=== PATIENT | male | born 1955 | race Caucasian/White ===

== ENCOUNTER 2016-06-27 18:37 | Emergency (ER) | payer BC ==
--- NOTE | 2016-06-27 18:56 | EDM.PDOC ---
ED HPI GI/ABDOMINAL - General Chief Complaint: Abdominal Pain Stated Complaint: VOMITIING, ABDOMINAL PAIN Time Seen by Provider: 06/27/16 18:45 Source: Reports: Patient, Family History Limitations: Reports: No limitations - History of Present Illness INITIAL COMMENTS - FREE TEXT/NARRATIVE: Jose Guadalupe comes in with a 10 hr hx of colicky RUQ pain associated with nausea and vomiting. There is no radiation of pain, no fever, chills, sweats, diarrhea or constipation. There is no chest pain or SOB. He has tried no meds for sx relief. - Related Data Allergies/ADRs: Allergies Allergy/AdvReac Type Severity Reaction Status Date / Time No Known Allergies Allergy Verified 06/27/16 19:19 Home Meds: Home Meds Lisinopril [Lisinopril] 10 mg PO DAILY 06/27/16 [History] SUMAtriptan Succinate [Sumatriptan Succinate] 100 mg PO ASDIRECTED PRN 06/27/16 [History] Past Medical History Cardiovascular History: Reports: Hypertension Neurological History: Reports: Migraines ED ROS GENERAL - Review of Systems Review Of Systems: See Below Constitutional: Reports: malaise, decreased appetite HEENT: Reports: No symptoms Respiratory: Reports: No Symptoms Cardiovascular: Reports: No symptoms Endocrine: Reports: no symptoms GI/Abdominal: Reports: Abdominal pain, Nausea, Vomiting : Reports: no symptoms Musculoskeletal: Reports: no symptoms Skin: Reports: no symptoms Neurological: Reports: No Symptoms Psychiatric: Reports: No symptoms Hematologic/Lymphatic: Reports: no symptoms Immunologic: Reports: no symptoms ED EXAM, GI/ABD - Physical Exam Exam: See Below Exam Limited By: No limitations General Appearance: alert, WD/WN, mild distress Throat/Mouth: Normal inspection, Normal oropharynx Head: normocephalic Neck: normal inspection, supple Respiratory/Chest: lungs clear, normal breath sounds Cardiovascular: regular rate, rhythm, no murmur GI/Abdominal: normal bowel sounds, no organomegaly, no distention, no mass, tenderness (RUQ) (Male) Exam: No hernia Back Exam: normal inspection Extremities: normal inspection Neurological: alert, oriented, CN II-XII intact, normal cognition, normal gait, no motor/sensory deficits Psychiatric: normal affect, normal mood Skin Exam: Warm, Dry, Intact, Normal color Lymphatic: no adenopathy Course - Vital Signs Text/Narrative:: Following admission to the [facility] ED, lab work and x rays were obtained; the F&U Abdomen was nonspecific, no obst or free air seen; RUQ US normal for age; Abd- Pelvic CT w contrast: fatty liver, appendix normal, no obst, bladder wall thickening with suspected vesical neck obst; incidental minor renal calculi; CBC noting Hgb 16.1 gm, WBC 10,900, plts normal; Na 136, K 4.4, BUN 39, Cr 1.1, non FBS 123; UA noting 2+ ketones; Jose Guadalupe's pain improved with IV fluids and hypo, and he was discharged home for rest and full liquid diet tomorrow. Last Recorded V/S: Last Vital Signs Temp 35.4 C 06/27/16 19:41 Pulse 50 L 06/27/16 19:41 Resp 14 06/27/16 19:41 BP 172/75 H 06/27/16 19:41 Pulse Ox 98 06/27/16 19:41 - Orders/Labs/Meds Orders: Active Orders 24 hr Category Date Time Status Abdomen 2V AP Flat Upright [CR] Stat Exams 06/27/16 18:48 Taken Abdomen Ltd [US] Stat Exams 06/27/16 19:18 Taken Abdomen Pelvis w Cont [CT] Stat Exams 06/27/16 19:44 Taken Iopamidol [Isovue-370 (76%)] Med 06/27/16 20:15 Active 100 ml IV . DIRECTED Sodium Chloride 0.9% [Normal Saline] 1,000 ml Med 06/27/16 19:45 Active IV ASDIRECTED Sodium Chloride 0.9% [Saline Flush] Med 06/27/16 19:44 Active 10 ml FLUSH ASDIRECTED PRN Peripheral IV Insertion Adult [OM.PC] Routine Oth 06/27/16 19:44 Ordered Medication Orders Sodium Chloride (Normal Saline) 1,000 mls @ 999 mls/hr IV ASDIRECTED [facility] Last Admin: 06/27/16 20:14 Dose: 999 mls/hr Iopamidol (Isovue-370 (76%)) 100 ml IV . DIRECTED [facility] Last Admin: 06/27/16 20:35 Dose: 85 ml Sodium Chloride (Saline Flush) 10 ml FLUSH ASDIRECTED PRN PRN Reason: Keep Vein Open Last Admin: 06/27/16 20:05 Dose: 10 ml Labs: Laboratory Tests 06/27/16 06/27/16 06/27/16 Range/Units 18:45 18:45 19:00 WBC 10.9 (4.5-12.0) X10-3/uL RBC 5.69 (4.30-5.75) x10(6)uL Hgb 16.1 H (11.5-15.5) g/dL Hct 48.8 (30.0-51.3) % MCV 85.8 (80-96) fL MCH 28.4 (27.7-33.6) pg MCHC 33.1 (32.2-35.4) g/dL RDW 14.2 (11.5-15.5) % Plt Count 222 (125-369) X10(3)uL MPV 8.9 (7.4-10.4) fL Neut % (Auto) 83.9 H (46-82) % Lymph % (Auto) 11.7 L (13-37) % [place] % (Auto) 2.8 L (4-12) % Eos % (Auto) 0 L (1.0-5.0) % Baso % (Auto) 2 (0-2) % Neut # (Auto) 9.1 H (1.6-8.3) # Lymph # (Auto) 1.3 (0.6-5.0) # [place] # (Auto) 0.3 (0.0-1.3) # Eos # (Auto) 0.0 (0.0-0.8) # Baso # (Auto) 0.2 (0.0-0.2) # Sodium 136 (135-145) mmol/L Potassium 4.4 (3.5-5.3) mmol/L Chloride 103 (100-110) mmol/L Carbon Dioxide 21 L (23-29) mmol/L BUN 39 H (5-20) mg/dL Creatinine 1.1 (0.6-1.3) mg/dL Est Cr Clr Drug Dosing TNP Estimated GFR (MDRD) > 60 (>60) BUN/Creatinine Ratio 35.5 H (9-20) Glucose 123 H (80-116) mg/dL Calcium 9.4 (8.6-10.2) mg/dL Total Bilirubin 1.2 (0.1-1.3) mg/dL AST 20 (5-27) IU/L ALT 16 (14-26) IU/L Alkaline Phosphatase 54 L (56-112) IU/L Total Protein 7.3 (6.0-8.0) g/dL Albumin 4.3 (3.5-5.2) g/dL Globulin 3.0 g/dL Albumin/Globulin Ratio 1.4 Amylase 44 (28-100) U/L Urine Color Yellow (YELLOW) Urine Appearance Clear (CLEAR) Urine pH 6.0 (5.0-6.5) Ur Specific [place] 1.020 (1.010-1.025) Urine Protein Negative (NEGATIVE) mg/dL Urine Glucose (UA) Normal (NEGATIVE) mg/dL Urine Ketones 150 H (NEGATIVE) mg/dL Urine Occult Blood Negative (NEGATIVE) Urine Nitrite Negative (NEGATIVE) Urine Bilirubin Negative (NEGATIVE) Urine Urobilinogen Normal (NEGATIVE) mg/dL Ur Leukocyte Esterase Negative (NEGATIVE) Urine RBC 0-5 (0) Urine WBC 0-5 (0) Ur Squamous Epith Cells Occasional (NS,R,O) Urine Bacteria Rare H (NS) Meds: Medications Generic Name Dose Route Start Last Admin Trade Name Freq PRN Reason Stop Dose Admin Sodium Chloride 1,000 mls @ 999 mls/hr 06/27/16 19:45 06/27/16 20:14 Normal Saline IV 999 mls/hr ASDIRECTED [facility] Administration Iopamidol 100 ml 06/27/16 20:15 06/27/16 20:35 Isovue-370 (76%) IV 85 ml . DIRECTED [facility] Administration Sodium Chloride 10 ml 06/27/16 19:44 06/27/16 20:05 Saline Flush FLUSH 10 ml ASDIRECTED PRN Administration Keep Vein Open Discontinued Medications Generic Name Dose Route Start Last Admin Trade Name Freq PRN Reason Stop Dose Admin Hydromorphone HCl 2 mg 06/27/16 19:45 06/27/16 20:18 Dilaudid IVPUSH 06/27/16 19:46 2 mg ONETIME ONE Administration Departure - Departure Time of Disposition: 21:25 Disposition: Home, Self-Care 01 Condition: fair Clinical Impression: Abdominal pain, acute, right upper quadrant - Problem List & Annotations (1) Abdominal pain, acute, right upper quadrant SNOMED Code(s): 453601534 Code(s): R10.11 - RIGHT UPPER QUADRANT PAIN Status: Acute Current Visit: Yes Annotation/Comment:: Jose Guadalupe is sx improved, and will stay home from work this weekend. He will remain on Full Liq diet tomorrow, monitor temps and report any escalation of sxs. - Problem List Review Problem List Initiated/Reviewed/Updated: Yes - My Orders Last 24 Hours: My Active Orders 06/27/16 18:48 Abdomen 2V AP Flat Upright [CR] Stat 06/27/16 19:18 Abdomen Ltd [US] Stat 06/27/16 19:44 Abdomen Pelvis w Cont [CT] Stat Sodium Chloride 0.9% [Saline Flush] 10 ml FLUSH ASDIRECTED PRN Peripheral IV Insertion Adult [OM.PC] Routine 06/27/16 19:45 Sodium Chloride 0.9% [Normal Saline] 1,000 ml IV ASDIRECTED 06/27/16 20:15 Iopamidol [Isovue-370 (76%)] 100 ml IV . DIRECTED - Assessment/Plan Last 24 Hours: My Active Orders 06/27/16 18:48 Abdomen 2V AP Flat Upright [CR] Stat 06/27/16 19:18 Abdomen Ltd [US] Stat 06/27/16 19:44 Abdomen Pelvis w Cont [CT] Stat Sodium Chloride 0.9% [Saline Flush] 10 ml FLUSH ASDIRECTED PRN Peripheral IV Insertion Adult [OM.PC] Routine 06/27/16 19:45 Sodium Chloride 0.9% [Normal Saline] 1,000 ml IV ASDIRECTED 06/27/16 20:15 Iopamidol [Isovue-370 (76%)] 100 ml IV . DIRECTED Plan: Follow up in ED or PCP if sxs persist. No meds dispensed.
[2016-06-27] MEDS ORDERED: Sodium Chloride 0.9% 10 ML Syringe FLUSH PRN (19:44)
[2016-06-27] MEDS ORDERED: HYDROmorphone 2 MG/ML SDV IVPUSH ONE (19:45)
[2016-06-27] MEDS ORDERED: Sodium Chloride 0.9% 1,000 ML IV SCH (19:45)
[2016-06-27] MEDS ORDERED: Iopamidol 755 Mg/ML 100 ML Bottle IV SCH (20:15)
[2016-06-27 21:26] VITALS: BP 121/72
--- NOTE | 2016-06-30 14:53 | US ---
INDICATION: Right upper quadrant colicky pain, question acute cholecystitis. RIGHT UPPER QUADRANT/GALLBLADDER ULTRASOUND: Multiple ultrasonic images were limited in that the pancreas was not adequately visualized. The gallbladder was normal in size, measuring 6.9 x 2.5 x 2.5 cm, without evidence of wall thickening or calculi and with a negative ultrasonic Plunkett sign. No sludge was seen. No pericholecystic fluid was noted. The common bile duct appeared normal in caliber. The right kidney was not visualized. The aorta and IVC were not evaluated. IMPRESSION: Study somewhat limited by gas with normal gallbladder suggested. MTDD
--- NOTE | 2016-06-30 14:54 | CR ---
INDICATION: 10 hours of right upper quadrant pain, nausea and vomiting. ABDOMEN: Four images of the abdomen in supine and upright projections were obtained and revealed evidence of inguinal surgery bilaterally. There appears to be a calcification overlying the lower pole of the right kidney. Open sutures appear to be present overlying the sacrum and lower right pelvis. The pattern of gas and feces is nonspecific, without evidence of free air or obstruction. No organomegaly, mass lesions, or free fluid collections were suggested. No pathologic calcifications were seen. Calcifications are noted in the area of the prostate. Also there are calcifications compatible with phleboliths in the pelvis. IMPRESSION: 1. Distinct calcification noted overlying the lower pole of the right kidney, compatible with renal calculus - correlate clinically. 2. Prostatic calcifications. 3. Previous inguinal surgeries compatible with herniorrhaphies. 4. Otherwise, nonspecific abdomen. MTDD
== END 2016-06-27 21:26 | disposition home or self-care (01) ==
LOC: FB.ED 18:37
DX: R10.11 Right upper quadrant pain (principal); I10 Essential (primary) hypertension; G43.909 Migraine, unspecified, not intractable, without status migrainosus; Z79.899 Other long term (current) drug therapy
CPT/HCPCS: 36415; 74020; 74177; 76705; 80053; 81001; 82150; 85025; 96361; 96374; 99284; J1170; J7040; J7050; Q9967

== ENCOUNTER 2016-07-04 13:50 | Observation (INO) | payer BC ==
[2016-07-04] MEDS ORDERED: Ondansetron 4 MG/2 ML SDV IV PRN (14:21)
[2016-07-04] MEDS ORDERED: Sodium Chloride 0.9% 10 ML Syringe FLUSH PRN (14:21)
[2016-07-04] MEDS: Lactated Ringers 1,000 ML IV SCH ×2 (14:45→22:58)
[2016-07-04] MEDS ORDERED: Dicyclomine 10 MG Cap PO PRN (17:43)
[2016-07-04] MEDS: Morphine 2 MG/ML Syringe IVPUSH PRN ×2 (18:51→21:49)
[2016-07-04] MEDS ORDERED: PROPRANOLOL 120 MG PO SCH (21:00)
[2016-07-04] MEDS: traZODone 100 MG Tab PO SCH (21:46)
[2016-07-05] MEDS: Morphine 2 MG/ML Syringe IVPUSH PRN ×3 (05:50→16:58)
[2016-07-05] MEDS: Lactated Ringers 1,000 ML IV SCH ×3 (06:59→23:56)
[2016-07-05] MEDS: Lisinopril 10 MG Tab PO SCH (08:07)
--- NOTE | 2016-07-05 10:17 | PCM.SURGPN ---
- General Info Date of Service: 07/05/16 POD#: 0 Functional Status: Reports: urinating - Review of Systems Cardiovascular: Reports: No Symptoms Gastrointestinal: Reports: Abdominal pain, Flatus. Denies: Diarrhea, Vomiting - Patient Data Vitals - most recent: Last Vital Signs Temp 36.3 C 07/05/16 07:45 Pulse 55 L 07/05/16 07:45 Resp 22 H 07/05/16 07:45 BP 128/81 07/05/16 08:07 Pulse Ox 97 07/05/16 07:45 Weight - most recent: 74.843 kg I&O - last 24 hours: Intake & Output 07/04/16 07/05/16 07/05/16 22:59 06:59 14:59 Intake Total 888 935 50 Output Total 150 300 Balance 888 785 -250 Lab Results last 24 hrs: Laboratory Results - last 24 hr 07/04/16 07/04/16 07/04/16 Range/Units 14:55 14:55 18:50 WBC 7.8 (4.5-12.0) X10-3/uL RBC 4.87 (4.30-5.75) x10(6)uL Hgb 14.0 (11.5-15.5) g/dL Hct 42.3 (30.0-51.3) % MCV 87.0 (80-96) fL MCH 28.8 (27.7-33.6) pg MCHC 33.1 (32.2-35.4) g/dL RDW 14.3 (11.5-15.5) % Plt Count 204 (125-369) X10(3)uL MPV 9.2 (7.4-10.4) fL Neut % (Auto) 68.6 (46-82) % Lymph % (Auto) 22.6 (13-37) % [place] % (Auto) 7.3 (4-12) % Eos % (Auto) 1 (1.0-5.0) % Baso % (Auto) 0 (0-2) % Neut # (Auto) 5.3 (1.6-8.3) # Lymph # (Auto) 1.8 (0.6-5.0) # [place] # (Auto) 0.6 (0.0-1.3) # Eos # (Auto) 0.1 (0.0-0.8) # Baso # (Auto) 0.0 (0.0-0.2) # Sodium 136 (135-145) mmol/L Potassium 4.2 (3.5-5.3) mmol/L Chloride 105 (100-110) mmol/L Carbon Dioxide 24 (23-29) mmol/L BUN 33 H (5-20) mg/dL Creatinine 1.0 (0.6-1.3) mg/dL Est Cr Clr Drug Dosing 67.42 mL/min Estimated GFR (MDRD) > 60 (>60) BUN/Creatinine Ratio 33.0 H (9-20) Glucose 91 (80-116) mg/dL Calcium 9.0 (8.6-10.2) mg/dL Total Bilirubin 0.9 (0.1-1.3) mg/dL AST 18 (5-27) IU/L ALT 15 (14-26) IU/L Alkaline Phosphatase 50 L (56-112) IU/L Total Protein 6.7 (6.0-8.0) g/dL Albumin 3.9 (3.5-5.2) g/dL Globulin 2.8 g/dL Albumin/Globulin Ratio 1.4 Urine Color Yellow (YELLOW) Urine Appearance Clear (CLEAR) Urine pH 6.0 (5.0-6.5) Ur Specific [place] 1.020 (1.010-1.025) Urine Protein Negative (NEGATIVE) mg/dL Urine Glucose (UA) Normal (NEGATIVE) mg/dL Urine Ketones 15 H (NEGATIVE) mg/dL Urine Occult Blood Negative (NEGATIVE) Urine Nitrite Negative (NEGATIVE) Urine Bilirubin Negative (NEGATIVE) Urine Urobilinogen Normal (NEGATIVE) mg/dL Ur Leukocyte Esterase Negative (NEGATIVE) Urine RBC Not seen (0) Urine WBC 0-5 (0) Ur Squamous Epith Cells Few H (NS,R,O) Urine Bacteria Few H (NS) Med Orders - Current: Current Medications Lactated Ringer's (Ringers, Lactated) 1,000 mls @ 125 mls/hr IV ASDIRECTED [facility] Last Admin: 07/05/16 06:59 Dose: 125 mls/hr Lisinopril (Prinivil) 10 mg PO DAILY [facility] Last Admin: 07/05/16 08:07 Dose: 10 mg Morphine Sulfate (Morphine) 2 mg IVPUSH Q2H PRN PRN Reason: Pain Last Admin: 07/05/16 08:04 Dose: 2 mg Ondansetron HCl (Zofran) 4 mg IV Q6H PRN PRN Reason: Nausea/Vomiting Last Admin: 07/04/16 18:51 Dose: 4 mg Propranolol HCl (Inderal La) 120 mg PO BEDTIME [facility] Sodium Chloride (Saline Flush) 10 ml FLUSH ASDIRECTED PRN PRN Reason: Keep Vein Open Trazodone HCl (Trazodone) 100 mg PO BEDTIME [facility] Last Admin: 07/04/16 21:46 Dose: 100 mg Discontinued Medications Dicyclomine HCl (Bentyl) 10 mg PO QIDACANDBED PRN PRN Reason: Cramping Propranolol HCl (Inderal La) 120 mg PO BEDTIME [facility] Last Admin: 07/04/16 21:47 Dose: 120 mg - Exam General: alert, oriented, cooperative, no acute distress Lungs: Clear to auscultation, Normal respiratory effort Cardiovascular: Regular Rate, Regular Rhythm Abdomen: tenderness, abnormal bowel sounds (hyperactive ) - Problem List Review Problem List Initiated/Reviewed/Updated: Yes - My Orders Last 24 Hours: Active Orders 24 hr Category Date Time Status Admission Status [Patient Status] [ADT] Routine ADT 07/04/16 14:06 Active Height and Weight [RC] UPON Care 07/04/16 14:21 Active Intake and Output [RC] 06,14,22 Care 07/04/16 14:22 Active Notify Provider Vital Signs [RC] ASDIRECTED Care 07/04/16 14:22 Active Oxygen Therapy [RC] PRN Care 07/04/16 14:21 Active Up ad Cadence [RC] ASDIRECTED Care 07/04/16 14:21 Active VTE/DVT Education [RC] Per Unit Routine Care 07/04/16 14:21 Active Vital Signs [RC] 00,04,08,12,16,20 Care 07/04/16 14:21 Active Clear Liquid Diet [DIET] Diet 07/05/16 Lunch Ordered Nothing per Oral Now Diet [DIET] Diet 07/04/16 Dinner Active Abdomen 1V Flat [CR] Routine Exams 07/04/16 14:21 Taken Chest 2V [CR] Routine Exams 07/04/16 14:21 Taken Dicyclomine [Bentyl] Med 07/05/16 11:30 Ordered 10 mg PO QIDACANDBED Lactated Ringers [Ringers, Lactated] 1,000 ml Med 07/04/16 14:30 Active IV ASDIRECTED Lisinopril [Prinivil] Med 07/05/16 09:00 Active 10 mg PO DAILY Morphine Med 07/04/16 17:45 Active 2 mg IVPUSH Q2H PRN Ondansetron [Zofran] Med 07/04/16 14:21 Active 4 mg IV Q6H PRN Propranolol [Inderal LA] Med 07/05/16 21:00 Active 120 mg PO BEDTIME Sodium Chloride 0.9% [Saline Flush] Med 07/04/16 14:21 Active 10 ml FLUSH ASDIRECTED PRN Sucralfate [Carafate] Med 07/05/16 11:30 Ordered 1 gm PO QIDACANDBED traZODone Med 07/04/16 21:00 Active 100 mg PO BEDTIME Peripheral IV Insertion Adult [OM.PC] Routine Oth 07/04/16 14:21 Ordered Sequential Compression Device [OM.PC] Per Unit Routine Oth 07/04/16 14:22 Ordered Resuscitation Status Routine Resus Stat 07/04/16 14:21 Ordered Medication Orders Lactated Ringer's (Ringers, Lactated) 1,000 mls @ 125 mls/hr IV ASDIRECTED [facility] Last Admin: 07/05/16 06:59 Dose: 125 mls/hr Infusion: 07/05/16 06:58 Dose: 125 mls/hr Admin: 07/04/16 22:58 Dose: 125 mls/hr Infusion: 07/04/16 22:45 Dose: 125 mls/hr Admin: 07/04/16 14:45 Dose: 125 mls/hr Lisinopril (Prinivil) 10 mg PO DAILY [facility] Last Admin: 07/05/16 08:07 Dose: 10 mg Morphine Sulfate (Morphine) 2 mg IVPUSH Q2H PRN PRN Reason: Pain Last Admin: 07/05/16 08:04 Dose: 2 mg Admin: 07/05/16 05:50 Dose: 2 mg Admin: 07/04/16 21:49 Dose: 2 mg Admin: 07/04/16 18:51 Dose: 2 mg Ondansetron HCl (Zofran) 4 mg IV Q6H PRN PRN Reason: Nausea/Vomiting Last Admin: 07/04/16 18:51 Dose: 4 mg Propranolol HCl (Inderal La) 120 mg PO BEDTIME [facility] Sodium Chloride (Saline Flush) 10 ml FLUSH ASDIRECTED PRN PRN Reason: Keep Vein Open Trazodone HCl (Trazodone) 100 mg PO BEDTIME [facility] Last Admin: 07/04/16 21:46 Dose: 100 mg - Assessment Assessment (Free Text/Narrative):: would like to try to eat. - Plan Plan (Free Text/Narrative):: clear liquid diet start bentyl scheduled, add carafate. 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 he does not consistently wear all the PPE he should. I have asked that he get the name of the stuff he was working with.
[2016-07-05] MEDS ORDERED: SUMAtriptan 50 MG Tab PO PRN (11:00)
[2016-07-05] MEDS: Dicyclomine 10 MG Cap PO SCH ×3 (11:21→20:51)
[2016-07-05] MEDS: Sucralfate 1 GM Tab PO SCH ×3 (11:21→20:51)
--- NOTE | 2016-07-05 16:54 | PCM.SN ---
- Free Text/Narrative Note: reports feeling better with the bentyl and the carafate. will advance the diet to full liquids tomorrow.
[2016-07-05] MEDS: traZODone 100 MG Tab PO SCH (20:52)
[2016-07-05] MEDS ORDERED: Propranolol 60 MG Cap.ER PO SCH (21:00)
[2016-07-05] MEDS ORDERED: traZODone 100 MG Tab PO SCH (21:00)
[2016-07-05] MEDS ORDERED: PROPRANOLOL 120 MG PO SCH (21:00)
[2016-07-06] MEDS: Sucralfate 1 GM Tab PO SCH (07:35)
[2016-07-06] MEDS: Dicyclomine 10 MG Cap PO SCH (07:35)
[2016-07-06 07:58] VITALS: BP 136/88
[2016-07-06] MEDS: Lisinopril 10 MG Tab PO SCH (08:21)
--- NOTE | 2016-07-06 08:58 | PCM.SURGPN ---
- General Info Date of Service: 07/06/16 Functional Status: Reports: pain controlled, tolerating diet, ambulating, urinating - Review of Systems Gastrointestinal: Reports: No symptoms (tolerated diet, abd pian is better ) - Patient Data Vitals - most recent: Last Vital Signs Temp 36.7 C 07/06/16 07:15 Pulse 48 L 07/06/16 07:15 Resp 20 07/06/16 07:15 BP 136/88 07/06/16 08:21 Pulse Ox 96 07/06/16 07:15 Weight - most recent: 74.843 kg I&O - last 24 hours: Intake & Output 07/05/16 07/06/16 07/06/16 22:59 06:59 14:59 Intake Total 1226 1073 Balance 1226 1073 Med Orders - Current: Current Medications Dicyclomine HCl (Bentyl) 10 mg PO QIDACANDBED [facility] Last Admin: 07/06/16 07:35 Dose: 10 mg Fluoxetine HCl (Prozac) 40 mg PO DAILY [facility] Last Admin: 07/06/16 08:22 Dose: 40 mg Lactated Ringer's (Ringers, Lactated) 1,000 mls @ 125 mls/hr IV ASDIRECTED [facility] Last Admin: 07/05/16 23:56 Dose: 125 mls/hr Lisinopril (Prinivil) 10 mg PO DAILY [facility] Last Admin: 07/06/16 08:21 Dose: 10 mg Morphine Sulfate (Morphine) 2 mg IVPUSH Q2H PRN PRN Reason: Pain Last Admin: 07/05/16 16:58 Dose: 2 mg Ondansetron HCl (Zofran) 4 mg IV Q6H PRN PRN Reason: Nausea/Vomiting Last Admin: 07/04/16 18:51 Dose: 4 mg Propranolol HCl (Inderal La) 120 mg PO BEDTIME [facility] Last Admin: 07/05/16 20:52 Dose: 120 mg Propranolol HCl (Inderal La) 120 mg PO BEDTIME [facility] Last Admin: 07/05/16 20:52 Dose: Not Given Sodium Chloride (Saline Flush) 10 ml FLUSH ASDIRECTED PRN PRN Reason: Keep Vein Open Sucralfate (Carafate) 1 gm PO QIDACANDBED [facility] Last Admin: 07/06/16 07:35 Dose: 1 gm Sumatriptan Succinate (Imitrex) 100 mg PO ASDIRECTED PRN PRN Reason: migraine Last Admin: 07/05/16 11:20 Dose: 100 mg Trazodone HCl (Trazodone) 100 mg PO BEDTIME [facility] Last Admin: 07/05/16 20:52 Dose: 100 mg Trazodone HCl (Trazodone) 100 mg PO BEDTIME [facility] Last Admin: 07/05/16 20:52 Dose: Not Given Discontinued Medications Dicyclomine HCl (Bentyl) 10 mg PO QIDACANDBED PRN PRN Reason: Cramping Propranolol HCl (Inderal La) 120 mg PO BEDTIME [facility] Last Admin: 07/04/16 21:47 Dose: 120 mg - Exam General: alert, oriented Lungs: Clear to auscultation, Normal respiratory effort Cardiovascular: Regular Rate, Regular Rhythm Abdomen: bowel sounds present, soft, no tenderness. No: no distension, abnormal bowel sounds - Problem List & Annotations (1) Gastroenteritis SNOMED Code(s): 59207165 Code(s): K52.9 - NONINFECTIVE GASTROENTERITIS AND COLITIS, UNSPECIFIED Status: Resolved Current Visit: Yes - Problem List Review Problem List Initiated/Reviewed/Updated: Yes - My Orders Last 24 Hours: Active Orders 24 hr Category Date Time Status Ready for Discharge [RC] PER UNIT ROUTINE Care 07/06/16 08:57 Ordered Vital Signs [RC] 08,16,00 Care 07/05/16 10:20 Active Full Liquid Diet [DIET] Diet 07/06/16 Breakfast Active Dicyclomine [Bentyl] Med 07/05/16 11:30 Active 10 mg PO QIDACANDBED FLUoxetine [PROzac] Med 07/06/16 09:00 Active 40 mg PO DAILY Lisinopril [Prinivil] Med 07/05/16 09:00 Active 10 mg PO DAILY Propranolol [Inderal LA] Med 07/05/16 21:00 Active 120 mg PO BEDTIME Propranolol [Inderal LA] Med 07/05/16 21:00 Active 120 mg PO BEDTIME SUMAtriptan [Imitrex] Med 07/05/16 11:00 Active 100 mg PO ASDIRECTED PRN Sucralfate [Carafate] Med 07/05/16 11:30 Active 1 gm PO QIDACANDBED traZODone Med 07/05/16 21:00 Active 100 mg PO BEDTIME Medication Orders Dicyclomine HCl (Bentyl) 10 mg PO QIDACANDBED [facility] Last Admin: 07/06/16 07:35 Dose: 10 mg Admin: 07/05/16 20:51 Dose: 10 mg Admin: 07/05/16 16:58 Dose: 10 mg Admin: 07/05/16 11:21 Dose: 10 mg Fluoxetine HCl (Prozac) 40 mg PO DAILY [facility] Last Admin: 07/06/16 08:22 Dose: 40 mg Lactated Ringer's (Ringers, Lactated) 1,000 mls @ 125 mls/hr IV ASDIRECTED [facility] Last Admin: 07/05/16 23:56 Dose: 125 mls/hr Infusion: 07/05/16 23:46 Dose: 125 mls/hr Admin: 07/05/16 15:46 Dose: 125 mls/hr Infusion: 07/05/16 14:59 Dose: 125 mls/hr Admin: 07/05/16 06:59 Dose: 125 mls/hr Infusion: 07/05/16 06:58 Dose: 125 mls/hr Admin: 07/04/16 22:58 Dose: 125 mls/hr Infusion: 07/04/16 22:45 Dose: 125 mls/hr Admin: 07/04/16 14:45 Dose: 125 mls/hr Lisinopril (Prinivil) 10 mg PO DAILY [facility] Last Admin: 07/06/16 08:21 Dose: 10 mg Admin: 07/05/16 08:07 Dose: 10 mg Morphine Sulfate (Morphine) 2 mg IVPUSH Q2H PRN PRN Reason: Pain Last Admin: 07/05/16 16:58 Dose: 2 mg Admin: 07/05/16 08:04 Dose: 2 mg Admin: 07/05/16 05:50 Dose: 2 mg Admin: 07/04/16 21:49 Dose: 2 mg Admin: 07/04/16 18:51 Dose: 2 mg Ondansetron HCl (Zofran) 4 mg IV Q6H PRN PRN Reason: Nausea/Vomiting Last Admin: 07/04/16 18:51 Dose: 4 mg Propranolol HCl (Inderal La) 120 mg PO BEDTIME [facility] Last Admin: 07/05/16 20:52 Dose: 120 mg Propranolol HCl (Inderal La) 120 mg PO BEDTIME [facility] Last Admin: 07/05/16 20:52 Dose: Not Given Sodium Chloride (Saline Flush) 10 ml FLUSH ASDIRECTED PRN PRN Reason: Keep Vein Open Sucralfate (Carafate) 1 gm PO QIDACANDBED [facility] Last Admin: 07/06/16 07:35 Dose: 1 gm Admin: 07/05/16 20:51 Dose: 1 gm Admin: 07/05/16 16:58 Dose: 1 gm Admin: 07/05/16 11:21 Dose: 1 gm Sumatriptan Succinate (Imitrex) 100 mg PO ASDIRECTED PRN PRN Reason: migraine Last Admin: 07/05/16 11:20 Dose: 100 mg Trazodone HCl (Trazodone) 100 mg PO BEDTIME [facility] Last Admin: 07/05/16 20:52 Dose: 100 mg Admin: 07/04/16 21:46 Dose: 100 mg Trazodone HCl (Trazodone) 100 mg PO BEDTIME [facility] Last Admin: 07/05/16 20:52 Dose: Not Given - Assessment Assessment (Free Text/Narrative):: ready for discharge - Plan Plan (Free Text/Narrative):: see discharge plan
[2016-07-06] MEDS ORDERED: FLUoxetine 20 MG Cap PO SCH (09:00)
--- NOTE | 2016-07-07 09:31 | CR ---
INDICATION: Abdominal pain. CHEST: PA and lateral views of the chest were obtained 07/04/2016. No comparisons were available. Somewhat flattened diaphragm leaves, with slight AP diameter prominence, suggest the possibility of COPD - correlate clinically. The heart appeared normal in size and shape except for question of left atrial enlargement. The aorta is tortuous with calcification in the arch. Bony structures appear to be intact and unremarkable, except to note a mild dextroconcave scoliosis of the lower thoracic spine with some minimal degenerative changes in the mid thoracic spine. No free air is noted under the hemidiaphragm leaves. IMPRESSION: 1. No acute process. 2. Possible COPD - correlate clinically. 3. ASD aorta. 4. Possible left atrial enlargement. 5. Mild scoliosis. MTDD
--- NOTE | 2016-07-07 09:32 | CR ---
INDICATION: Abdomen pain. ABDOMEN: Two supine images of the abdomen were obtained and revealed evidence of previous inguinal herniorrhaphies. A calcific appearing density is noted overlying the lower pole of the right kidney and may represent a renal calculus. Calcific densities are noted in the pelvis which may represent phleboliths. The possibility of distal ureteral calculus on the right is difficult to entirely exclude. The pattern of gas and feces is fairly nonspecific. No gross free air is seen. No definite organomegaly or mass lesions could be identified. Bony structures appear to be fairly intact. There is suggestion of a very minimal dextroconvex scoliosis of the upper lumbar spine. IMPRESSION: 1. None acute abdomen. 2. Possible lower pole renal calculus on the right. 3. Probable phleboliths in the pelvis, one of which could possible represent a distal right ureteral calculus. 4. Mild scoliosis. 5. Post inguinal herniorrhaphies. [facility]
== END 2016-07-06 10:15 | disposition home or self-care (01) ==
LOC: FB.MS 14:04
PROVIDERS: ADMIT Surgery; ATTEND Family Medicine
DX: K52.9 Noninfective gastroenteritis and colitis, unspecified (principal); Z79.899 Other long term (current) drug therapy
CPT/HCPCS: 36415; 71020; 74000; 80053; 81001; 85025; 96361; 96374; 96375; 96376; A9270; G0378; J2270; J2405; J7120

== ENCOUNTER → 2020-04-02 | Day surgery (SDC) | payer BC ==
[~2020-04-02] MED LIST: Lactated Ringers 1,000 ML IV SCH; Lidocaine 2% 5 ML SDV INJECT ONE; Midazolam 1 MG/ML 2 ML SDV IV ONE; Propofol 200 MG/20 ML SDV IV ONE; Sodium Chloride 0.9% 10 ML Syringe FLUSH PRN
--- NOTE | 2020-04-02 09:03 | PCM.OPNOTE ---
- General Post-Op/Procedure Note Date of Surgery/Procedure: 04/02/20 Operative Procedure(s): c scope with cold forceps biopsy Findings: descending colon polyps x4 Pre Op Diagnosis: screening c scope Post-Op Diagnosis: desending colon polyp x4 Anesthesia Technique: MAC Primary Surgeon: Nathanael Kate Anesthesia Provider: Chika Hobbs Pathology: colon polyps x4 Complications: None Condition: Good Free Text/Narrative:: see dictation. #[id number]
[2020-04-02 10:12] VITALS: BP 146/94; PULSE 54
--- NOTE | 2020-04-02 10:24 | OR ---
DATE OF OPERATION: 04/02/2020 SURGEON: Nathanael Kate MD PROCEDURE PERFORMED: Colonoscopy with cold forceps biopsy. PREOPERATIVE DIAGNOSIS: Colon cancer screening. POSTOPERATIVE DIAGNOSIS: Colon polyps x4 in the descending colon. INDICATIONS FOR PROCEDURE: This is a 64-year-old white male who presents for screening colonoscopy. He was offered and accepted same. DESCRIPTION OF OPERATION: After an excellent IV sedation was administered, digital rectal exam was performed. No marked abnormality was noted. Flexible colonoscope was inserted and advanced to the cecum without difficulty. The prep was excellent. The following findings were noted. Ascending colon is unremarkable. Transverse colon is unremarkable. Descending colon, a total of 4 polyps were encountered along the entire length of the colon, 3 of the polyps were approximately 5 mm in size and were biopsied and obliterated with cold biopsy forceps. Two of them were located in the proximal descending colon and 1 in the distal descending colon. A third polyp measuring roughly 8 mm in size and a flat nature located behind a fold was in the mid descending colon. This did not appear to be amenable to loop snare biopsy, and this was biopsied in multiple passes and obliterated with cold biopsy forceps. All polyps were submitted in 1 container. The sigmoid colon was unremarkable. The rectum and anus were unremarkable. The patient tolerated the procedure well. Results will be sent to the patient via letter. /[id number] /MODL
== END | disposition home or self-care (01) ==
LOC: FB.SDS 06:36
PROVIDERS: ATTEND Surgery
DX: Z12.11 Encounter for screening for malignant neoplasm of colon (principal); D12.4 Benign neoplasm of descending colon; Z79.899 Other long term (current) drug therapy
CPT/HCPCS: 00812-QZ; 88305; J2250; J2704; J7120